=== PATIENT | female | born 1980 | race Caucasian/White ===

== ENCOUNTER 2018-07-28 15:12 | Inpatient (IN) | payer BC ==
[2018-10-02] MEDS ORDERED: MISOPROSTOL 200 MCG TAB PR ×2 (04:00→14:30)
[2018-10-02] MEDS ORDERED: OXYTOCIN 30 UNITS/LR 500 ML IV ×2 (04:00→14:30)
[2018-10-02] MEDS ORDERED: BUTORPHANOL 2 MG INJ IV ×2 (04:00)
[2018-10-02] MEDS ORDERED: CARBOPROST 250 MCG INJ IM ×2 (04:00→14:30)
[2018-10-02] MEDS: LACTATED RINGER'S 1,000 ML IV ×3 (04:22→09:54)
[2018-10-02 04:50] LABS: ADD MAN DIFF? NO
[2018-10-02 04:54] LABS: WHITE BLOOD COUNT 11.7 10^3/ul (4.8-10.8)
[2018-10-02 04:54] LABS: BASOPHIL # 0.1 10^3/ul (0.0-0.1); BASOPHILS % 0.4 % (0.0-2.0); EOSINOPHILS # 0.1 10^3/ul (0.0-0.5); EOSINOPHILS % 1.1 % (0.0-7.0); HEMATOCRIT 35.1 % (37.0-47.0); HEMOGLOBIN 11.7 g/dl (12.0-16.0); LYMPHOCYTES # 2.8 10^3/ul (0.8-2.9); MEAN CORPUSCULAR HEMOGLOBIN 28.6 pg (29.0-33.0); MEAN CORPUSCULAR HGB CONC 33.3 g/dl (32.0-37.0); MEAN CORPUSCULAR VOLUME 85.8 fl (82.0-101.0); MEAN PLATELET VOLUME 12.1 fl (7.4-10.4); MONOCYTE # 0.9 10^3/ul (0.3-0.9); MONOCYTES % 7.6 % (0.0-11.0); NEUTROPHIL # 7.7 10^3/ul (1.6-7.5); PLATELET COUNT 173 10^3/UL (140-415); RED BLOOD COUNT 4.09 10^6/ul (4.20-5.40); RED CELL DISTRIBUTION WIDTH 12.3 % (11.5-14.5)
[2018-10-02 05:14] LABS: INR 0.94; PARTIAL THROMBOPLASTIN TIME 26.9 Sec (23.0-35.0); PROTIME 12.7 Sec (11.9-14.9)
[2018-10-02 05:31] LABS: ALANINE AMINOTRANSFERASE 28 IU/L (13-69); ALBUMIN 3.9 g/dl (3.3-4.9); ALBUMIN/GLOBULIN RATIO 1.21; ALKALINE PHOSPHATASE 118 IU/L (42-121); ANION GAP 11 (5-13); ASPARTATE AMINO TRANSFERASE 32 IU/L (15-46); BILIRUBIN,INDIRECT 0.5 mg/dl (0-1.1); BILIRUBIN,TOTAL 0.5 mg/dl (0.2-1.3); BLOOD UREA NITROGEN 15 mg/dl (7-20); CALCIUM 9.2 mg/dl (8.4-10.2); CARBON DIOXIDE 21 mmol/L (21-31); CHLORIDE 105 mmol/L (97-110); CREATININE 0.59 mg/dl (0.44-1.00); Estimated GFR > 60 mL/min (>60); GLUCOSE 97 mg/dl (70-220); POTASSIUM 3.9 mmol/L (3.5-5.1); SODIUM 137 mmol/L (135-144); TOTAL PROTEIN 7.1 g/dl (6.1-8.1); URIC ACID 6.3 mg/dl (3.1-7.9)
[2018-10-02] MEDS ORDERED: FENTAnyl 2MCG/ML-ROPIV 0.2% 100 ML (05:52)
[2018-10-02] MEDS ORDERED: ONDANSETRON 4 MG INJ IV ×2 (06:00→14:30)
[2018-10-02] MEDS ORDERED: DIPHENHYDRAMINE 50 MG INJ IV (06:00)
[2018-10-02] MEDS ORDERED: NALOXONE (0.4 MG/ML) INJ IV (06:00)
[2018-10-02] MEDS ORDERED: FENTAnyl 2MCG/ML-ROPIV 0.2% 100 ML BAG EPI (06:00)
[2018-10-02 06:01] LABS: HEPATITIS B SURFACE ANTIGEN NEGATIVE (NEGATIVE)
[2018-10-02] MEDS: METHYLERGONOVINE 0.2 MG INJ IM (14:11)
[2018-10-02] MEDS: OXYTOCIN 30 UNITS/LR 500 ML IV ×3 (14:29→18:20)
[2018-10-02] MEDS ORDERED: OXYCODONE/ASPIRIN (4.88/325) TAB PO ×2 (14:30)
[2018-10-02] MEDS ORDERED: METHYLERGONOVINE 0.2 MG INJ IM (14:30)
[2018-10-02] MEDS ORDERED: NACL 0.9% 3 ML SYG IV (14:30)
[2018-10-02] MEDS ORDERED: DIPHENHYDRAMINE 25 MG CAP PO (14:30)
[2018-10-02] MEDS: LIDOCAINE 1% (MPF) 30 ML INJ INJ (15:12)
[2018-10-02] MEDS: MINERAL OIL LIGHT 10 ML VIAL TOP (15:12)
[2018-10-02 15:49] LABS: RAPID PLASMA REAGIN NONREACTIVE (NR)
[2018-10-02] MEDS: IBUPROFEN 600 MG TAB PO ×3 (17:10→23:49)
[2018-10-02] MEDS: BENZOCAINE 20% 56 ML SPRAY TOP (23:50)
[2018-10-02] MEDS: LANOLIN HPA 1 PKT TOP (23:50)
[2018-10-02] MEDS: WITCH HAZEL/GLYCERIN PAD PR (23:50)
[2018-10-03] MEDS: IBUPROFEN 600 MG TAB PO ×3 (05:59→18:00)
[2018-10-03 07:13] LABS: ADD MAN DIFF? NO
[2018-10-03 07:17] LABS: BASOPHILS % 0.2 % (0.0-2.0); EOSINOPHILS # 0.1 10^3/ul (0.0-0.5); EOSINOPHILS % 0.8 % (0.0-7.0); HEMATOCRIT 29.5 % (37.0-47.0); HEMOGLOBIN 9.6 g/dl (12.0-16.0); LYMPHOCYTES # 2.2 10^3/ul (0.8-2.9); LYMPHOCYTES % 13.3 % (15.0-51.0); MEAN CORPUSCULAR HEMOGLOBIN 28.6 pg (29.0-33.0); MEAN CORPUSCULAR HGB CONC 32.5 g/dl (32.0-37.0); MEAN CORPUSCULAR VOLUME 87.8 fl (82.0-101.0); MEAN PLATELET VOLUME 11.9 fl (7.4-10.4); MONOCYTE # 1.3 10^3/ul (0.3-0.9); MONOCYTES % 7.7 % (0.0-11.0); NEUTROPHIL # 12.6 10^3/ul (1.6-7.5); NEUTROPHILS % 77.4 % (39.0-77.0); PLATELET COUNT 132 10^3/UL (140-415); RED BLOOD COUNT 3.36 10^6/ul (4.20-5.40); RED CELL DISTRIBUTION WIDTH 12.6 % (11.5-14.5)
[2018-10-03 07:17] LABS: WHITE BLOOD COUNT 16.3 10^3/ul (4.8-10.8)
[2018-10-04] MEDS: IBUPROFEN 600 MG TAB PO ×3 (00:51→11:43)
[2018-10-04 06:54] LABS: WHITE BLOOD COUNT 12.6 10^3/ul (4.8-10.8)
== END 2018-10-04 13:55 | disposition home or self-care (01) | DRG 807 ==
LOC: OBT 15:12 → L-D 10-02 02:45 → OBT 10-02 03:34 → L-D 10-02 03:34 → PP1 10-02 17:47
PROVIDERS: Obstetrics & Gynecology
PROC: 10D07Z6 Extraction of Products of Conception, Vacuum, Via Natural or Artificial Opening (ICD-10-PCS; principal; 2018-10-02)
PROC: 0W8NXZZ Division of Female Perineum, External Approach (ICD-10-PCS; 2018-10-02)
DX: O48.0 Post-term pregnancy (principal); Z37.0 Single live birth; Z3A.40 40 weeks gestation of pregnancy; O77.9 Labor and delivery complicated by fetal stress, unspecified
CPT/HCPCS: 62322; 76815; 80053; 84560; 85025; 85048; 85610; 85730; 86592; 86850; 86900; 86901; 87340; 99464